=== PATIENT | male | born 1990 | race African-American/Black ===

== ENCOUNTER 2021-03-16 05:38 | Emergency (ER) | payer MEDICAID, SELFPAY ==
--- NOTE | ~2021-03-16 | XR_ITS ---
EXAMINATION: XR ankle RT min 3V DATE: 03/16/2021 06:42 INDICATION: Right ankle injury. TECHNIQUE: 4 views of right ankle were obtained. COMPARISON: None. FINDINGS: Bone alignment is normal. There is a nondisplaced comminuted fracture of base of fifth meta tarsal. Joint spaces are normal. IMPRESSION: 1. Nondisplaced comminuted fracture of base of fifth metatarsal. Reviewed, dictated and finalized at location A.
--- NOTE | ~2021-03-16 | XR_ITS ---
EXAMINATION: XR foot RT min 3V DATE: 03/16/2021 06:42 INDICATION: Right foot injury. TECHNIQUE: 4 views of right foot were obtained. COMPARISON: None. FINDINGS: Bone alignment is normal. There is a nondisplaced comminuted intra-articular fracture of ba se of fifth metatarsal. 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 IMPRESSION: 1. Nondisplaced comminuted intra-articular fracture of base of fifth metatarsal. Reviewed, dictated and finalized at location A. IMPRESSION: 1. Nondisplaced comminuted intra-articular fracture of base of fifth metatarsal .
[2021-03-16 05:43] VITALS: BP 118/81; PULSE 87; RESP 14; TEMP 36.7; O2SAT 97
--- NOTE | 2021-03-16 06:12 | ED.LOWEXIN ---
HPI - Extremity Injury (Lower) General Chief Complaint: Extremity Injury, Lower Stated Complaint: R foot pain Time Seen by Provider: 03/16/21 05:48 Source: RN notes reviewed History of Present Illness HPI Narrative: Patient presents emergency department from home for right foot pain. Patient states that yesterday he was coming down the stairs and missed the last stair and inverted his right but he states he has had pain since that time with pain and swelling over the right dorsal lateral foot states the pain is worse attempting to walk on the foot states he last took ibuprofen for the pain last night he denies any other trauma or injury denies any numbness or tingling in the extremity Related Data Allergies Allergy/AdvReac Type Severity Reaction Status Date / Time No Known Allergies Allergy Verified 03/16/21 06:12 Review of Systems Review of Systems: Gen.: Denies fevers or chills Musculoskeletal: See HPI Neuro: Denies numbness, tingling, weakness Skin: Denies rash Endo: Denies DM PMFSH Past Medical History Medical History (Updated 03/16/21 @ 07:00 by Thuan Roberson DO) Patient denies significant medical history Social History Social History (Updated 03/16/21 @ 06:13 by Thuan Roberson DO) Smoking status: Never smoker Exam Narrative: APPEARANCE: No acute distress, nontoxic, resting in bed Eyes: EOMI HEENT: Normocephalic, atraumatic, RESPIRATORY: No respiratory distress MUSCULOSKELETAl: Tender to palpation with swelling and ecchymosis over the dorsal lateral right foot mild tenderness of the right lateral malleolus no tenderness of the proximal fibula dorsalis pedis pulse 2+ neurovascular intact NEURO: Awake and alert. Following commands, speech normal, no focal deficits SKIN:: Warm, dry. Normal Color no rash or lesions Course Course Emergency Course: Discussed Dr. Aguilar orthopedics agrees with plan for postop shoe and crutches with follow-up as an outpatient Discussed with patient results of workup and diagnosis. Discussed need for follow-up with primary care, proper use of medication, and reasons to return to the emergency department. Patient understands and agrees to current treatment plan Vital Signs Vital signs: Vital Signs Temperature 98.0 F 03/16/21 05:43 Pulse Rate 87 03/16/21 05:43 Respiratory Rate 14 03/16/21 05:43 Blood Pressure 118/81 03/16/21 05:43 Pulse Oximetry 97 03/16/21 05:43 Temperature 98.0 F 03/16/21 05:43 Pulse Rate 87 03/16/21 05:43 Respiratory Rate 14 03/16/21 05:43 Blood Pressure 118/81 03/16/21 05:43 Pulse Oximetry 97 03/16/21 05:43 MDM - Extremity Injury (Lower) Imaging Data Radiologist's impression: ITS Impressions Foot X-Ray 03/16/21 06:43 IMPRESSION: 1. Nondisplaced comminuted intra-articular fracture of base of fifth metatarsal. Ankle X-Ray 03/16/21 06:44 IMPRESSION: 1. Nondisplaced comminuted fracture of base of fifth metatarsal. Discharge Plan Discharge Clinical Impression: Closed nondisplaced fracture of fifth metatarsal bone of right foot Patient Disposition: Home, Self-Care Condition: Stable Instructions: Antibiotic Form, Foot Fracture in Adults (ED) Additional Instructions: Return for creasing pain numbness or tingling the extremities or any other symptoms of concern Prescriptions: New hydrocodone-acetaminophen 5-325 mg tablet 1 tablet PO Q4H PRN (Reason: pain) Qty: 10 RF: 0 ibuprofen [IBU] 600 mg tablet 600 mg PO Q6H PRN (Reason: pain) Qty: 20 RF: 0 Follow-up/Referrals: PHYSICIAN,CLINICAL PHLEBOTOMIST [Primary Care Provider] - Anthony Aguilar MD [Physician] - (Follow-up in 2 to 3 days for further orthopedic treatment and evaluation) Stand Alone Forms: Work/School Release IP Time of Disposition: 07:01
== END 2021-03-16 07:26 | disposition home or self-care (01) ==
PROVIDERS: Emergency Provider Emergency Medicine
DX: S92.354A Nondisplaced fracture of fifth metatarsal bone, right foot, initial encounter for closed fracture (principal); X50.9XXA Other and unspecified overexertion or strenuous movements or postures, initial encounter
CPT/HCPCS: 73610; 73630; 99284

== ENCOUNTER 2021-03-26 06:12 | Emergency (ER) | payer SELFPAY ==
--- NOTE | ~2021-03-26 | XR_ITS ---
EXAMINATION: XR foot RT 2V INDICATION: Right foot pain, known fracture TECHNIQUE: Two views of the right foot are obtained COMPARISON: 03/16/2021 FINDINGS: There is an unchanged nondisplaced comminuted fracture at the lateral base of the fifth met atarsal. Soft tissue swelling is seen adjacent to the fracture. There has been no significant interva l change. No new osseous abnormality is identified. IMPRESSION: 1. Comminuted intra-articular fracture at the lateral base of the fifth metatarsal without significan t change. Reviewed, dictated and finalized at location A. IMPRESSION: 1. Comminuted intra-articular fracture at the lateral base of the fifth metatar inder without significant change.
[2021-03-26 06:29] VITALS: BP 117/77; PULSE 77; RESP 18; TEMP 36.6; O2SAT 98
--- NOTE | 2021-03-26 07:34 | ED.LOWEXIN ---
HPI - Extremity Injury (Lower) General Chief Complaint: Extremity Injury, Lower Stated Complaint: Right foot pain, edema, Fx noted last week in ER Time Seen by Provider: 03/26/21 06:57 Source: patient History of Present Illness HPI Narrative: Patient presents with right foot pain. Patient was seen last week for the same diagnosed with fracture instructed follow-up with orthopedic surgery. Patient reports has been unable to do so due to lack of insurance. Reports he had to go back to work and is been walking on his foot more. He had increased pain that is achy, constant, worse with ambulation, does not radiate anywhere. He was concerned that the fracture got worse so he came back to the ER for evaluation. Denies any numbness or tingling. Related Data Allergies Allergy/AdvReac Type Severity Reaction Status Date / Time No Known Allergies Allergy Verified 03/16/21 06:12 Review of Systems Review of Systems: CONSTITUTIONAL: Denies fever, chills, or sweats. EYES: Denies visual changes, redness, or discharge. ENT: Denies rhinorrhea, congestion, sore throat, or otalgia. CARDIOVASCULAR: Denies chest pain, palpitations, or edema. RESPIRATORY: Denies cough or dyspnea. GASTROINTESTINAL: Denies abdominal pain, nausea, vomiting, or diarrhea. GENITOURINARY: Denies dysuria or hematuria. SKIN: Denies rash or itching. MUSCULOSKELETAL: Denies back pain, joint pain, or myalgia. NEUROLOGIC: Denies headache, numbness, dizziness, or weakness. PSYCHIATRIC: Denies anxiety or depression. All systems reviewed & are unremarkable except as noted in HPI and below PMFSH Past Medical History Medical History Patient denies significant medical history Social History Social History Smoking status: Never smoker Exam Narrative: GENERAL: Well-appearing, well-nourished, and in no acute distress. HEAD: Normocephalic, atraumatic. EYES: PERRLA and EOMI. ENT: Nares clear, no rhinorrhea or epistaxis. Mucous membranes moist. NECK: Supple. No masses. No JVD EXTREMITIES: Normal range of motion. Mild tenderness at the base of the fifth metatarsal on the right foot SKIN: Warm, dry, no rash. NEURO: No focal deficits. Alert and oriented x3. PSYCH: Normal mood and affect. Course Reevaluation(s) Reevaluation #1: Work-up reviewed with patient and the importance of following with orthopedic surgery. Patient educated on the affordable care Date: 03/26/21 Time: 07:36 Vital Signs Vital signs: Vital Signs Temperature 36.6 C 03/26/21 06:29 Pulse Rate 77 03/26/21 06:29 Respiratory Rate 18 03/26/21 06:29 Blood Pressure 117/77 03/26/21 06:29 Pulse Oximetry 98 03/26/21 06:29 Temperature 36.6 C 03/26/21 06:29 Pulse Rate 77 03/26/21 06:29 Respiratory Rate 18 03/26/21 06:29 Blood Pressure 117/77 03/26/21 06:29 Pulse Oximetry 98 03/26/21 06:29 MDM - Extremity Injury (Lower) MDM Narrative Medical decision making narrative: H&P as above, vss, pt looks clinically well, exam focal tenderness, imaging without significant change from prior, additional labs/img considered, symptomatic relief available as needed, on reevaluation pt continues to looks clinically well. Suspect overuse in the setting of known fracture, dns neurovascular compromise, abscess, cellulitis. plan to tx/monitor as op w/ pcm f/u findings/plan discussed with pt, pt agree/comfortable with plan, return precautions given Imaging Data Radiologist's impression: Impressions Foot X-Ray 03/26/21 07:29 IMPRESSION: 1. Comminuted intra-articular fracture at the lateral base of the fifth metatarsal without significant change. Discharge Plan Discharge Clinical Impression: Fracture of 5th metatarsal Qualifiers: Encounter type: subsequent encounter Fracture type: closed Fracture alignment: nondisplaced Laterality: right Fracture healing: with routine
== END 2021-03-26 07:46 | disposition home or self-care (01) ==
PROVIDERS: Emergency Provider Emergency Medicine
DX: S92.354D Nondisplaced fracture of fifth metatarsal bone, right foot, subsequent encounter for fracture with routine healing (principal); X58.XXXD Exposure to other specified factors, subsequent encounter
CPT/HCPCS: 73620; 99283